=== PATIENT | male | born 1960 | race Caucasian/White ===

== ENCOUNTER → 2016-05-27 | Outpatient (CLI) | payer OTHER, MEDICARE ==
[~2016-05-27] MED LIST: ALBU1AER9 INH; ASPCH81X PO; FLUT110A INH; GLCSR500 PO; INSDGI SC; LEVO200T PO; LEVO50TA6 PO; MOME50SP5 NAE; MULT-513 PO; NVLGI SC; PRAV40TA PO
--- NOTE | 2016-05-27 10:30 | DIAGNOSTIC IMAGING REPORT ---
BILATERAL LOWER EXTREMITY VENOUS DOPPLER CLINICAL HISTORY: Bilateral limb pain and swelling. Recent vein ablation. COMPARISON STUDY: Left lower extremity venous Doppler October 20, 2005. TECHNIQUE: Sonography of the deep venous system of the bilateral lower extremities was performed. Compression and augmentation were evaluated. FINDINGS: The bilateral common femoral, superficial femoral and popliteal veins were compressible. Augmentation was normal. Flow was shown within the deep calf vessels. There is nonocclusive thrombus within the right greater saphenous vein. IMPRESSION: 1. No evidence of deep venous thrombus within the bilateral lower extremities. 2. Apparent nonocclusive thrombus within the right greater saphenous vein. This could be treatment related although correlation with recent procedural history is recommended. Electronically signed by: Ramses Espinoza M.D. 05/27/2016 10:29 AM Dictated Date/Time: 05/27/2016 10:23 AM
== END | disposition home or self-care (01) ==
LOC: C.ULTR 09:33
PROVIDERS: ATTEND Family Medicine
DX: I82.811 Embolism and thrombosis of superficial veins of right lower extremity (principal); M79.89 Other specified soft tissue disorders; M79.604 Pain in right leg; M79.605 Pain in left leg